=== PATIENT | male | born 1950 | race Caucasian/White ===

== ENCOUNTER 2022-01-29 18:20 | Emergency (ER) | payer OTHER ==
[~2022-01-29] VITALS: Wt 83.0 kg
[~2022-01-29 18:20] MED LIST: ATIVAN0.5 MG PO
== END 2022-01-29 21:16 | disposition home or self-care (01) ==
LOC: ED 18:20
DX: S30.860A Insect bite (nonvenomous) of lower back and pelvis, initial encounter (principal); W57.XXXA Bitten or stung by nonvenomous insect and other nonvenomous arthropods, initial encounter; Y93.89 Activity, other specified; Y92.89 Other specified places as the place of occurrence of the external cause; Y99.8 Other external cause status

== ENCOUNTER 2023-11-02 03:50 | Emergency (ER) | payer OTHER ==
[~2023-11-02] VITALS: Ht 170.1 cm; Wt 83.0 kg
[2023-11-02] MEDS ORDERED: METOPROLOL TART50 M1 PO (04:17)
[2023-11-02] MEDS ORDERED: ATORVASTATIN CA80 M1 PO (04:18)
== END 2023-11-02 05:09 | disposition home or self-care (01) ==
LOC: ED 03:50
DX: U07.1 COVID-19 (principal); E78.00 Pure hypercholesterolemia, unspecified; Z87.891 Personal history of nicotine dependence

== ENCOUNTER 2025-01-12 12:54 | Emergency (ER) | payer OTHER ==
[~2025-01-12] VITALS: Wt 79.4 kg
[~2025-01-12 12:54] MED LIST changes: +ATORVASTATIN CA80 M1 PO; +METOPROLOL TART50 M1 PO
[2025-01-12] MEDS ORDERED: Lactated Ringer's Solution 1,000 ML IV SCH (13:20)
[2025-01-12 13:31] LABS: BASO # 0.0 10*3/uL (0.0-0.1); BASO % 0.3 % (0.0-1.0); EOS # 0.2 10*3/uL (0.0-0.4); EOS % 2.7 % (1.0-4.0); MEAN CELL VOLUME 86.5 fl (80.0-94.0); MEAN CORPUSCULAR HGB 30.2 pg (27.0-31.0); MEAN PLATELET VOLUME 9.9 fl (9.6-12.3); MONO # 0.4 10*3/uL (0.1-1.0); MONO % 5.5 % (3.0-9.0); NEUT # 4.9 10*3/uL (2.3-7.9); NEUT % 75.8 % (47.0-73.0); NUCLEATED RED BLOOD CELL 0.0 % (0.0-0.0); NUCLEATED RED BLOOD CELL 0.0 10*3/uL (0.0-0.0); PLATELET COUNT AUTOMATED 99 10*3/uL (130-400); RED CELL DISTRI WIDTH 13.1 % (0-14.5)
[2025-01-12 13:49] LABS: BUN 11 mg/dl (9-23)
== END 2025-01-12 18:35 | disposition home or self-care (01) ==
LOC: ED 12:54
PROVIDERS: Emergency Medicine
DX: E86.0 Dehydration (principal); I10 Essential (primary) hypertension